=== PATIENT | male | born 1940 | race Caucasian/White ===

== ENCOUNTER 2020-12-02 10:32 | Outpatient (CLI) | payer MEDICARE, MEDICAID, SELFPAY ==
--- NOTE | 2020-12-02 11:30 | NEURO_ITS ---
Impression: # Status post multiple right lower extremity surgeries particularly around knee and below the knee. # Absent right peroneal responses. # Poor right posterior tibial nerve responses. 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 # Nerve responses are polyphasic at the proximal site raising the possibility of nerve dysfunction above the ankle and below the knee. Nerve Conduction Studies Anti Sensory Summary Table Stim Site NR Peak (ms) P-T Amp (?V) Site1 Site2 Delta-P (ms) Dist (cm) Alex (m/s) Left Sup Fibular Anti Sensory (Ant Lat Mall) NO RESPONSE 14 cm NR 14 cm Ant Lat Mall 16.0 Right Sup Fibular Anti Sensory (Ant Lat Mall) 14 cm 4.4 5.9 14 cm Ant Lat Mall 4.4 16.0 36 Left Sural Anti Sensory (Lat Mall) Calf 3.9 18.9 Calf Lat Mall 3.9 16.0 41 Right Sural Anti Sensory (Lat Mall) Calf 4.1 10.5 Calf Lat Mall 4.1 16.0 39 Motor Summary Table Stim Site NR Onset (ms) O-P Amp (mV) Site1 Site2 Delta-0 (ms) Dist (cm) Alex (m/s) Left Peroneal Motor (Vastus Med) Ankle 5.0 2.6 Popit Ankle 9.1 37.0 41 Popit 14.1 2.1 Right Peroneal Motor (Vastus Med) NO RESPONSE Ankle NR Popit Ankle 0.0 Popit NR Left Tibial Motor (Abd Montemayor Brev) Ankle 5.5 2.6 Knee Ankle 9.8 40.0 41 Knee 15.3 2.6 Right Tibial Motor (Abd Montemayor Brev) Ankle 6.0 0.8 Knee Ankle 9.7 40.0 41 Knee 15.7 0.1 F Wave Studies NR F-Lat (ms) L-R F-Lat (ms) Left Peroneal (Mrkrs) (EDB) 60.58 3.39 Right Peroneal (Mrkrs) (EDB) 63.98 3.39 Left Tibial (Mrkrs) (Abd Hallucis) 62.95 0.84 Right Tibial (Mrkrs) (Abd Hallucis) 62.11 0.84 EMG Side Muscle Nerve Root Ins Act Fibs Amp Dur Recrt Comment Right AntTibialis Dp Br Fibular L4-5 Nml Nml Nml >12ms Reduced Right Gastroc Tibial S1-2 Nml Nml Nml >12ms Reduced Right Fibularis Long Sup Br Fibular L5-S1 Nml Nml Nml Nml Nml Right Flex Dig Long Tibial L5-S2 Nml Nml Nml Nml Nml Right Ext Dig Brev Dp Br Fibular L5, S1 Nml Nml Nml Nml Reduced Left AntTibialis Dp Br Fibular L4-5 Nml Nml Nml Nml Reduced Left Gastroc Tibial S1-2 Nml Nml Nml Nml Nml Left Fibularis Long Sup Br Fibular L5-S1 Nml Nml Nml Nml Nml Left Flex Dig Long Tibial L5-S2 Nml Nml Nml Nml Nml Left Ext Dig Brev Dp Br Fibular L5, S1 Nml Nml Nml Nml Nml Right QuadratusFem QuadFemoris L4-5, S1 Nml Nml Nml Nml Reduced Left QuadratusFem QuadFemoris L4-5, S1 Nml Nml Nml Nml Reduced MTDD
== END 2020-12-02 10:33 | disposition home or self-care (01) ==
PROVIDERS: PCP Internal Medicine; Visit Provider Internal Medicine
DX: M62.81 Muscle weakness (generalized) (principal)
CPT/HCPCS: 95886; 95910

== ENCOUNTER 2021-04-26 14:01 | Outpatient (RCR) | payer MEDICARE, MEDICAID, SELFPAY ==
--- NOTE | 2021-04-26 15:40 | REHOPWC ---
SEATING EVALUATION NOTIFICATION This is to notify provider that Vick Latif participated in a power mobility device evaluation today. Recommendations were made specific to patient's needs. Seating Assessment documentation has been completed for detailed information on required equipment. The mobility device provider for this case is Ronal from [employer]. Please note that no further care plan will be developed on this account. Thank you for referring this patient to [facility]. Please review, sign, date and return this discharge summary JACQUIE. I have been updated about the patient's current status and I agree with discharge from the above service at this time. Referring Physician Date
== END 2021-04-27 08:54 | disposition home or self-care (01) ==
LOC: ANHPT 14:01
PROVIDERS: PCP Internal Medicine
DX: Z46.89 Encounter for fitting and adjustment of other specified devices (principal); M54.16 Radiculopathy, lumbar region; M54.50 Low back pain, unspecified; M47.897 Other spondylosis, lumbosacral region; M62.81 Muscle weakness (generalized); M12.88 Other specific arthropathies, not elsewhere classified, other specified site; G89.4 Chronic pain syndrome; Z79.891 Long term (current) use of opiate analgesic
CPT/HCPCS: 97163

== ENCOUNTER 2022-01-28 10:16 | Outpatient (CLI) | payer MEDICARE, MEDICAID, SELFPAY ==
--- NOTE | 2022-01-30 11:09 | WPDNEUROLOGY ---
Neurology EEG Report General Information Date of Study: 01/28/22 TEST EEG DIAGNOSIS tremor CONDITION OF RECORDING awake drowsy and sleep EEG NUMBER [id number] CLINICAL HISTORY tremors EEG DESCRIPTION basic resting occipital frequency consists of 8 to 10 hertz per 2nd low voltage alpha admixed with low-voltage 15 to 18 hertz per 2nd beta. During drowsiness low-voltage beta activity seen diffusely admixed with waxing and waning posterior alpha rhythm. Bilateral symmetrical sleep activity seen during sleep. Hyperventilation not done. Photic stimulation produced normal driving. Non paroxysmal. Nonfocal. Non lateralizing. IMPRESSION Normal record
== END 2022-01-28 10:17 | disposition home or self-care (01) ==
LOC: ANHNEURO 10:17
PROVIDERS: PCP Internal Medicine; Visit Provider Internal Medicine
DX: R25.1 Tremor, unspecified (principal)
CPT/HCPCS: 95816

== ENCOUNTER 2022-08-18 10:48 | Outpatient (CLI) | payer MEDICARE, MEDICAID, SELFPAY ==
--- NOTE | ~2022-08-18 | PE_ITS ---
EXAMINATION: PET skull to mid thigh DATE: 08/18/2022 12:44 INDICATION: Solitary pulmonary nodule TECHNIQUE: Blood glucose level was 93 mg/dL. 9.985 mCi of 18-fluorodeoxyglucose (18-FDG) was administ ered i.v. Low dose computed tomography (CT) images were acquired from the base of the brain to the pr oximal thighs for attenuation correction and anatomic localization. Positron emission tomography (PET ) images were acquired in the same distribution beginning 47 minutes after injection. The dose-length product (DLP) was 675.15 mGy-cm. COMPARISON: 02/21/2009 FINDINGS: Head/neck: Mild FDG uptake in the oral cavity and vocal cords without suspicious CT correlate is like ly physiologic. Chest: There are airspace opacities in the left lower lobe. Dependent airspace opacities are noted in right lung and left upper lobe. No definite pulmonary nodule is identified. No pathologically enlarg ed thoracic lymph nodes are identified. The heart size is normal. Calcified mediastinal and right hil ar lymph nodes are consistent with old granulomatous disease. The heart size is normal. There is calc ified coronary artery atherosclerosis. Abdomen/pelvis/proximal thighs: Physiologic FDG activity is present in the bowel and urinary tract. N o abnormal FDG uptake is identified. The gallbladder is surgically absent. There is mild enlargement of the common bile duct and central intrahepatic ducts which is likely due to post cholecystectomy st ate. There is calcified atherosclerosis of the aorta and many of the other arteries. Pneumobilia is n oted. The spleen, pancreas, and adrenal glands are normal. There is a 2.8 cm cyst of the left kidney. The right kidney is unremarkable. No pathologically enlarged abdominal or pelvic lymph nodes are anthony ntified. No free intraperitoneal gas or evidence of bowel obstruction. There is calcified atheroscler osis of the aorta and many of the other arteries. There is a bypass graft of the right superficial fe moral artery. Colonic diverticulosis is present without evidence of diverticulitis. Musculoskeletal: There is severe cervical and lumbar spondylosis. Changes of right total shoulder art hroplasty are noted. IMPRESSION: 1. Airspace opacities in the left lower lobe, likely infection/inflammation. No definite pulmonary no dule identified. Reviewed, dictated and finalized at location [facility] IMPRESSION: 1. Airspace opacities in the left lower lobe, likely infection/inflammation. No definite pulmonary nodule identified.
[2022-08-18 11:12] LABS: Glucose Point of Care 93 mg/dl (65-105)
== END 2022-08-18 10:49 | disposition home or self-care (01) ==
PROVIDERS: PCP Internal Medicine; Visit Provider Internal Medicine Pulmonary Disease
DX: R91.1 Solitary pulmonary nodule (principal); R91.8 Other nonspecific abnormal finding of lung field
CPT/HCPCS: 78815; A9552